=== PATIENT | male | born 1950 | race Two or more races ===

== ENCOUNTER 2022-10-30 08:10 | Inpatient (IN) | payer BC, MEDICARE ==
[2022-10-30] VITALS (15 sets, daily range): BP systolic 118–147; BP diastolic 58–94
[~2022-10-30] VITALS: Ht 170.2 cm; Wt 96.2 kg
--- NOTE | 2022-10-30 08:16 | NUR ---
PT BIBRA FROM HOME C/O WORSENING SHORTNESS OF BREATH AND BLE EDEMA SINCE YESTERDAY. PER EMS REPORT PT WAS SATTING AT LOW 80'S ON RA. PLACED ON O2@2LPM AND IS COMFORTABLE AWAITNG MD RHODES.
--- NOTE | 2022-10-30 08:19 | NUR ---
DR MARTINS AT BEDSIDE FOR EVAL.
[2022-10-30 08:50] LABS: BASOPHILS % (AUTO) 0.3 % (0.0-2.0); EOSINOPHILS % (AUTO) 1.6 % (0.0-6.0); HEMATOCRIT 41 % (39-51); HEMOGLOBIN 13.1 g/dL (13.5-17.5); LYMPHOCYTES # (AUTO) 1.2 K/uL (0.8-4.8); LYMPHOCYTES % (AUTO) 18.3 % (20.0-44.0); MEAN CORPUSCULAR HGB CONC 32 g/dl (31.0-36.0); MEAN CORPUSCULAR VOLUME 92 fL (80-96); MONOCYTES # (AUTO) 0.6 K/uL (0.1-1.30); MONOCYTES % (AUTO) 9.1 % (2.0-12.0); NEUTROPHILS # (AUTO) 4.7 K/uL (1.8-8.9); NEUTROPHILS % (AUTO) 70.7 % (43.0-81.0); PLATELET COUNT (AUTO) 182 K/uL (150-450); RED BLOOD CELL COUNT(AUTO) 4.42 MIL/uL (4.5-6.0); WHITE BLOOD COUNT (AUTO) 6.7 K/uL (4.3-11.0)
--- NOTE | 2022-10-30 08:54 | NUR ---
RADIOLOGY AT BEDSIDE FOR CHEST XRAY
[2022-10-30 09:07] LABS: CALCIUM, SERUM 8.9 mg/dL (8.5-10.1); CARBON DIOXIDE 27 mmol/L (21-32); CHLORIDE 108 mmol/L (98-107); CREATININE 1.5 mg/dL (0.6-1.3); GLUCOSE 311 mg/dL (74-106); POTASSIUM 5.1 mmol/L (3.5-5.1); SODIUM SERUM 141 mmol/L (136-145); UREA NITROGEN, BLOOD 33 mg/dL (7-18)
[2022-10-30 09:25] LABS: ALANINE AMINOTRANSFERASE 75 U/L (12-78); ALBUMIN 3.4 g/dL (3.4-5.0); ALKALINE PHOSPHATASE 107 U/L (46-116); ASPARTATE AMINOTRANSFERASE 35 U/L (15-37); BILIRUBIN,DIRECT 0.1 mg/dL (0.0-0.2); BILIRUBIN,TOTAL 0.4 mg/dL (0.2-1.0); TOTAL PROTEIN, SERUM 7.2 g/dL (6.4-8.2)
--- NOTE | 2022-10-30 09:33 | NUR ---
CARDIOLOGY ON-CALL PAGED
--- NOTE | 2022-10-30 09:35 | NUR ---
PANEL ON-CALL PAGED
[2022-10-30] MEDS ORDERED: ENOXAPARIN SODIUM 100 MG/ML DISP.SYRIN SQ ONE ×2 (09:39→10:00)
[2022-10-30] MEDS ORDERED: ASPIRIN 325 MG TABLET ONE (09:40)
[2022-10-30] MEDS ORDERED: ASPIRIN 325 MG TABLET PO ONE (10:00)
[2022-10-30] MEDS ORDERED: FURO40TA5 PO (10:17)
[2022-10-30] MEDS ORDERED: METO-357 PO (10:17)
[2022-10-30] MEDS ORDERED: TAMS-12 PO (10:17)
[2022-10-30] MEDS ORDERED: LISI40TA13 PO (10:17)
[2022-10-30] MEDS ORDERED: DULA1.5P SQ (10:17)
[2022-10-30] MEDS ORDERED: METF-442 PO (10:17)
[2022-10-30] MEDS ORDERED: ASPI-1420 PO (10:17)
[2022-10-30] MEDS ORDERED: INSU100I26 SQ (10:17)
[2022-10-30] MEDS ORDERED: GLIM4TAB37 PO (10:17)
[2022-10-30] MEDS ORDERED: MULT-447 PO (10:17)
[2022-10-30] MEDS ORDERED: ATOR10TA PO (10:17)
[2022-10-30] MEDS ORDERED: BICA50TA8 PO (10:17)
--- NOTE | 2022-10-30 11:15 | NUR ---
REPORT GIVEN TO ALMA RN AT ICU. AWAITING TRANSFER TO FLOOR.
[2022-10-30] MEDS ORDERED: MAGNESIUM HYDROXIDE 30 ML UDC PO PRN (11:30)
[2022-10-30] MEDS ORDERED: ACETAMINOPHEN 325 MG TABLET PO PRN (11:30)
[2022-10-30] MEDS ORDERED: DEXTROSE 50%-WATER 50 ML DISP.SYRIN IV PRN (11:30)
[2022-10-30] MEDS ORDERED: ONDANSETRON HCL/PF 4 MG/2 ML VIAL IVP PRN (11:30)
[2022-10-30] MEDS ORDERED: MAG HYDROX/AL HYDROX/SIMETH 30 ML UDC PO PRN (11:30)
[2022-10-30] MEDS ORDERED: Z GUARD REMEDY 4 OZ OINT TP PRN (11:30)
--- NOTE | 2022-10-30 11:58 | NUR ---
PATIENT TAKEN TO RADIOLOGY FOR CT PULMONARY ANGIOGRAM AND TAKEN STRAIGHT TO ICU.
[2022-10-30] MEDS ORDERED: IOHEXOL-350 100 ML VIAL IV ONE (12:19)
[2022-10-30] MEDS ORDERED: IV NS 0.9% 250 ML IV ONE (12:19)
[2022-10-30] MEDS: BLOOD SUGAR DIAGNOSTIC 1 EACH STRIP VI SCH ×3 (14:03→21:36)
[2022-10-30] MEDS: FUROSEMIDE 40 MG/4 ML VIAL IV SCH ×2 (14:03→17:27)
[2022-10-30] MEDS: INSULIN REGULAR, HUMAN 100 UNIT/ML 3 ML VIAL SQ PRN (19:13)
[2022-10-30] MEDS: INSULIN GLARGINE, 100 UNIT/ML CARTRIDGE SQ SCH (19:14)
--- NOTE | 2022-10-30 19:25 | NUR ---
CLOSING PT IN BED RESTING A/O X4. BREATHING IS EVEN AND UNLABORED MORE CLEAR BREATH SOUNDS 96% ON 3L NC. PT RECEIVED LASIX MADE 2000 ML OR URINE AND REDUCED EDEMA. ANTI COAGULANTS SCHEDULED FOR TECHNOLOGY SOLUTIONS ARCHITECT. LAST SUGAR 254 LATUS AND INSULIN GIVEN. PT IS AMBULATORY BUT HAS CONDOM CATH.
[2022-10-30] MEDS: ENOXAPARIN SODIUM 100 MG/ML DISP.SYRIN SQ SCH (21:36)
[2022-10-30] MEDS: *INSULIN REGULAR(HUMULIN R)HUM 100 UNIT/ML VIAL SQ PRN (21:43)
[2022-10-31] VITALS (20 sets, daily range): BP systolic 115–168; BP diastolic 47–136
--- NOTE | 2022-10-31 04:30 | NUR ---
ICU/RN: PT CONDOM CATH FELL OFF. DIAPER WAS SOILED. NEW DIAPER PLACED PT GIVEN URINAL TO VOID.
[2022-10-31 05:07] LABS: BASOPHILS % (AUTO) 0.3 % (0.0-2.0); EOSINOPHILS % (AUTO) 3.1 % (0.0-6.0); HEMATOCRIT 38 % (39-51); HEMOGLOBIN 12.2 g/dL (13.5-17.5); LYMPHOCYTES # (AUTO) 1.2 K/uL (0.8-4.8); LYMPHOCYTES % (AUTO) 19.2 % (20.0-44.0); MEAN CORPUSCULAR HGB CONC 33 g/dl (31.0-36.0); MEAN CORPUSCULAR VOLUME 91 fL (80-96); MONOCYTES # (AUTO) 0.7 K/uL (0.1-1.30); MONOCYTES % (AUTO) 10.9 % (2.0-12.0); NEUTROPHILS # (AUTO) 4.3 K/uL (1.8-8.9); NEUTROPHILS % (AUTO) 66.5 % (43.0-81.0); PLATELET COUNT (AUTO) 162 K/uL (150-450); RED BLOOD CELL COUNT(AUTO) 4.13 MIL/uL (4.5-6.0); WHITE BLOOD COUNT (AUTO) 6.5 K/uL (4.3-11.0)
[2022-10-31 05:19] LABS: CALCIUM, SERUM 8.5 mg/dL (8.5-10.1); CARBON DIOXIDE 31 mmol/L (21-32); CHLORIDE 110 mmol/L (98-107); CREATININE 1.4 mg/dL (0.6-1.3); GLUCOSE 115 mg/dL (74-106); MAGNESIUM 2.1 mg/dL (1.8-2.4); PHOSPHORUS 5.1 mg/dL (2.5-4.9); POTASSIUM 4.1 mmol/L (3.5-5.1); SODIUM SERUM 148 mmol/L (136-145); UREA NITROGEN, BLOOD 34 mg/dL (7-18)
--- NOTE | 2022-10-31 05:48 | NUR ---
ICU/RN: LINENS CHANGED AND KRYSTLE CARE RENDERED.
--- NOTE | 2022-10-31 07:25 | NUR ---
OPENING PT AWAKE AND ALERT IN BED A/O 4X ABLE TO UNDERSTAND CONCEPT AND ANSWERS QUESTIONS APPROPRIATELY. BREATHING EVENLY AND UNLABORED ON 3L NC SAT 94%. VITAL SIGNS WNL NO S/S OF ACUTE DISTRESS. PTS EDEMA HAS IMPROVED NO LONGER PITTING AND AT BASELINE. PT IS AMBULATORY ABLE TO GET UP AND SIT ON THE EDGE OF THE BED. LAC PATENT SALINE FLUSH NO S/S OF INFILTRATION. LAST BG READ 162.
[2022-10-31] MEDS: ATORVASTATIN 10 MG TABLET PO SCH (08:47)
[2022-10-31] MEDS: BLOOD SUGAR DIAGNOSTIC 1 EACH STRIP VI SCH ×4 (08:47→22:03)
[2022-10-31] MEDS: BICALUTAMIDE 50 MG TABLET PO SCH (08:47)
[2022-10-31] MEDS: FUROSEMIDE 40 MG/4 ML VIAL IV SCH ×2 (08:47→17:46)
[2022-10-31] MEDS: ASPIRIN EC 81 MG TABLET.DR PO SCH (08:47)
[2022-10-31] MEDS: LISINOPRIL (20MG) 20 MG TABLET PO SCH (08:48)
[2022-10-31] MEDS: TAMSULOSIN 0.4 MG CAP.SR.24H PO SCH (08:48)
[2022-10-31] MEDS: METOPROLOL SUCCINATE 50 MG TAB.SR.24H PO SCH (08:48)
[2022-10-31] MEDS: ENOXAPARIN SODIUM 100 MG/ML DISP.SYRIN SQ SCH ×2 (08:51→20:04)
--- NOTE | 2022-10-31 10:00 | NUR ---
SS consult received for medical sales needs. SW will follow up at a later time.
[2022-10-31] MEDS: INSULIN REGULAR, HUMAN 100 UNIT/ML 3 ML VIAL SQ PRN ×2 (13:18→18:45)
[2022-10-31] MEDS: INSULIN GLARGINE, 100 UNIT/ML CARTRIDGE SQ SCH (18:38)
--- NOTE | 2022-10-31 18:39 | NUR ---
REMOTE BROADCAST ENGINEER NOTE RECEIVED PATIENT ROM ICU ALERT ORIENTED X3 ON TELE MONITOR SR , NO SOB NOTED AT THIS TIME, ON 3L NC , BED IN LOWEST AND LOCKED POSITION ,CALL LIFGR WITHIN REACH WILL CONT TO MONITOR
[2022-10-31] MEDS: *INSULIN REGULAR(HUMULIN R)HUM 100 UNIT/ML VIAL SQ PRN (22:04)
--- NOTE | 2022-10-31 22:46 | NUR ---
MICHELLE RN OPENING NOTE PT RECEIVED IN BED, AWAKE, A&O X4, CALM, COOPERATIVE. PT ON 3L NC WITH CURRENT O2SAT OF 92%; PT DENIES ANY SOB, NO S/S OF RESP DISTRESS, NO COUGH, NON-LABORED AND EQUAL BREATHING. PT ATTACHED TO EXTERNAL MONITOR, SR WITH HR OF 78. IV ACCESS ON LAC 20G, INTACT AND PATENT, FLUSHES EASILY WITH NO RESISTANCE; NO MEDS/FLUIDS INFUSING THROUGH IT. BED IN LOWEST POSITION, CALL LIGHT WITHIN REACH, SIDE RAILS UP X2. WILL CONTINUE TO MONITOR THROUGHOUT THE NIGHT.
[2022-11-01] VITALS: BP 137/74
[2022-11-01 04:00] VITALS: BP 109/76
[2022-11-01 06:51] LABS: BASOPHILS % (AUTO) 0.2 % (0.0-2.0); EOSINOPHILS % (AUTO) 3.2 % (0.0-6.0); HEMATOCRIT 39 % (39-51); HEMOGLOBIN 12.8 g/dL (13.5-17.5); LYMPHOCYTES # (AUTO) 1.2 K/uL (0.8-4.8); MEAN CORPUSCULAR HGB CONC 33 g/dl (31.0-36.0); MEAN CORPUSCULAR VOLUME 91 fL (80-96); MONOCYTES # (AUTO) 0.7 K/uL (0.1-1.30); MONOCYTES % (AUTO) 11.3 % (2.0-12.0); NEUTROPHILS % (AUTO) 65.3 % (43.0-81.0); PLATELET COUNT (AUTO) 179 K/uL (150-450); RED BLOOD CELL COUNT(AUTO) 4.32 MIL/uL (4.5-6.0); WHITE BLOOD COUNT (AUTO) 6.1 K/uL (4.3-11.0)
--- NOTE | 2022-11-01 07:05 | NUR ---
MICHELLE RN CLOSING NOTE PT REMAINS IN BED, AWAKE, A&O X4, CALM, COOPERATIVE. CONTINUES TO BE ON 3L NC WITH O2SAT RANGING FROM 92%-98%; NO S/S OF RESP DISTRESS, NO SOB OR COUGH, NON-LABORED AND EQUAL BREATHING. PT ATTACHED TO EXTERNAL MONITOR, SB-SR WITH HR RANGING FROM 57- 78. IV ACCESS ON LAC 20G, INTACT AND PATENT, FLUSHES EASILY WITH NO RESISTANCE; NO MEDS/FLUIDS INFUSING THROUGH IT. ALL; DUE MEDS ADMINISTERED DURING THE NIGHT. BED IN LOWEST POSITION, CALL LIGHT WITHIN REACH, SIDE RAILS UP X2. WILL ENDORSE TO DAYSHIFT NURSE TO CONTINUE CARE.
[2022-11-01 07:17] LABS: CALCIUM, SERUM 8.6 mg/dL (8.5-10.1); CARBON DIOXIDE 34 mmol/L (21-32); CHLORIDE 109 mmol/L (98-107); CREATININE 1.2 mg/dL (0.6-1.3); GLUCOSE 69 mg/dL (74-106); POTASSIUM 4.1 mmol/L (3.5-5.1); SODIUM SERUM 149 mmol/L (136-145); UREA NITROGEN, BLOOD 33 mg/dL (7-18)
--- NOTE | 2022-11-01 07:25 | NUR ---
RN OPENING NOTE PT RECEIVED IN BED, AWAKE, A&O X4, CALM, COOPERATIVE. PT ON 3L NC; PT DENIES ANY SOB, NO S/S OF RESP DISTRESS, NO COUGH, NON-LABORED AND EQUAL BREATHING. PT ATTACHED TO EXTERNAL MONITOR. IV ACCESS ON LAC 20G, INTACT AND PATENT, FLUSHES EASILY WITH NO RESISTANCE. BED IN LOWEST POSITION, CALL LIGHT WITHIN REACH, SIDE RAILS UP X2.
[2022-11-01 08:00] VITALS: BP 126/70
[2022-11-01] MEDS: ASPIRIN EC 81 MG TABLET.DR PO SCH (08:15)
[2022-11-01] MEDS: METOPROLOL SUCCINATE 50 MG TAB.SR.24H PO SCH (08:15)
[2022-11-01] MEDS: FUROSEMIDE 40 MG/4 ML VIAL IV SCH (08:15)
[2022-11-01] MEDS: LISINOPRIL (20MG) 20 MG TABLET PO SCH (08:15)
[2022-11-01] MEDS: TAMSULOSIN 0.4 MG CAP.SR.24H PO SCH (08:15)
[2022-11-01] MEDS: BLOOD SUGAR DIAGNOSTIC 1 EACH STRIP VI SCH ×4 (08:15→21:26)
[2022-11-01] MEDS: ATORVASTATIN 10 MG TABLET PO SCH (08:15)
[2022-11-01] MEDS: ENOXAPARIN SODIUM 100 MG/ML DISP.SYRIN SQ SCH ×2 (08:19→20:07)
[2022-11-01] MEDS: BICALUTAMIDE 50 MG TABLET PO SCH (10:23)
[2022-11-01] MEDS: INSULIN REGULAR, HUMAN 100 UNIT/ML 3 ML VIAL SQ PRN ×2 (11:50→16:51)
[2022-11-01 12:00] VITALS: BP 112/64
[2022-11-01 16:00] VITALS: BP 119/53
[2022-11-01] MEDS: INSULIN GLARGINE, 100 UNIT/ML CARTRIDGE SQ SCH (17:08)
--- NOTE | 2022-11-01 18:32 | NUR ---
RN CLOSING NOTE PT IN BED, AWAKE, A&O X4, CALM, COOPERATIVE. CONTINUES TO BE ON 3L NC WITH O2SAT RANGING FROM 92%-98%; NO S/S OF RESP DISTRESS, NO SOB OR COUGH, NON-LABORED AND EQUAL BREATHING. PT ATTACHED TO EXTERNAL MONITOR,. IV ACCESS ON LAC 20G, INTACT AND PATENT, FLUSHES EASILY WITH NO RESISTANCE; NO MEDS/FLUIDS INFUSING THROUGH IT. ALL;. BED IN LOWEST POSITION, CALL LIGHT WITHIN REACH, SIDE RAILS UP X2. WILL ENDORSE TO NIGHT NURSE TO CONTINUE CARE.
[2022-11-01 20:00] VITALS: BP 125/70
--- NOTE | 2022-11-01 20:29 | NUR ---
UPHOLSTERY TECHNICIAN OPENING NOTE PT RECEIVED IN BED, AWAKE, A&O X4, CALM, COOPERATIVE. PT ON 3L NC WITH CURRENT O2SAT OF 96%; NO S/S OF RESP DISTRESS, NO COUGH OR SOB, NON-LABORED AND EQUAL BREATHING. PT ATTACHED TO EXTERNAL MONITOR, SR WITH HR OF 68. IV ACCESS ON LAC 20G, NO MEDS/FLUIDS INFUSING THROUGH. BED IN LOWEST POSITION, CALL LIGHT WITHIN REACH, SIDE RAILS UP X2. WILL CONTINUE TO MONITOR THROUGHOUT THE NIGHT.
[2022-11-01] MEDS: *INSULIN REGULAR(HUMULIN R)HUM 100 UNIT/ML VIAL SQ PRN (21:29)
[2022-11-02] VITALS: BP 103/62
[2022-11-02 04:00] VITALS: BP 127/60
--- NOTE | 2022-11-02 07:21 | NUR ---
AVIATION MECHANIC CLOSING NOTE PT REMAINS IN BED, ASLEEP BUT EASILY AROUSABLE. A&O X4, CALM, COOPERATIVE. CONTINUES TO BE ON 3L NC WITH O2SAT RANGING FROM 95%-98%; NO S/S OF RESP DISTRESS, NO SOB OR COUGH, NON-LABORED AND EQUAL BREATHING. PT ATTACHED TO EXTERNAL MONITOR, SB-SR WITH HR LOW 45. IV ACCESS ON LAC 20G, INTACT AND PATENT, FLUSHES EASILY WITH NO RESISTANCE; NO MEDS/FLUIDS INFUSING THROUGH IT. ALL; DUE MEDS ADMINISTERED DURING THE NIGHT. BED IN LOWEST POSITION, CALL LIGHT WITHIN REACH, SIDE RAILS UP X2. WILL ENDORSE TO DAYSHIFT NURSE TO CONTINUE CARE.
[2022-11-02 08:00] VITALS: BP 108/64
[2022-11-02] MEDS ORDERED: APIX5TAB PO (08:37)
[2022-11-02] MEDS ORDERED: FUROSEMIDE 40 MG/4 ML VIAL IV SCH (09:00)
[2022-11-02] MEDS: BICALUTAMIDE 50 MG TABLET PO SCH (10:30)
[2022-11-02] MEDS: LISINOPRIL (20MG) 20 MG TABLET PO SCH (10:31)
[2022-11-02] MEDS: ASPIRIN EC 81 MG TABLET.DR PO SCH (10:31)
[2022-11-02] MEDS: METOPROLOL SUCCINATE 50 MG TAB.SR.24H PO SCH (10:31)
[2022-11-02] MEDS: TAMSULOSIN 0.4 MG CAP.SR.24H PO SCH (10:31)
[2022-11-02] MEDS: BLOOD SUGAR DIAGNOSTIC 1 EACH STRIP VI SCH ×4 (10:32→22:02)
[2022-11-02] MEDS: ENOXAPARIN SODIUM 100 MG/ML DISP.SYRIN SQ SCH ×2 (10:32→20:24)
[2022-11-02] MEDS: ATORVASTATIN 10 MG TABLET PO SCH (10:32)
--- NOTE | 2022-11-02 10:51 | NUR ---
RN NOTE PATIENT ON ROOM AIR WHILE RESTING/SITTING ON CHAIR O2 SAT 96%. UPON AMBULATION APPROX 50 FEET O2 DECREASED TO 88%. PATIENT RETURNED TO ROOM AND SAT ON CHAIR WITHIN 3 MIN O2 SAT CAME BACK UP TO 95%.
--- NOTE | 2022-11-02 10:56 | NUR ---
RN NOTE PATIENT O2 SATURATION CURRENTLY 88% AT REST ON ROOM AIR.
[2022-11-02 12:00] VITALS: BP 98/49
[2022-11-02] MEDS: INSULIN REGULAR, HUMAN 100 UNIT/ML 3 ML VIAL SQ PRN ×2 (12:54→17:31)
[2022-11-02 16:00] VITALS: BP 117/63
[2022-11-02] MEDS: INSULIN GLARGINE, 100 UNIT/ML CARTRIDGE SQ SCH (17:32)
--- NOTE | 2022-11-02 18:51 | NUR ---
LAB INTERN CLOSING NOTE PT REMAINS IN BED, ASLEEP BUT EASILY AROUSABLE. A&O X4, CALM, COOPERATIVE. CONTINUES TO BE ON 3L NC WITH O2SAT RANGING FROM 95%-98%; NO S/S OF RESP DISTRESS, NO SOB OR COUGH, NON-LABORED AND EQUAL BREATHING. PT ATTACHED TO EXTERNAL MONITOR, . IV ACCESS ON LAC 20G, INTACT AND PATENT, FLUSHES EASILY WITH NO RESISTANCE; NO MEDS/FLUIDS INFUSING THROUGH IT. ALL; DUE MEDS ADMINISTERED. BED IN LOWEST POSITION, CALL LIGHT WITHIN REACH, SIDE RAILS UP X2. WILL
--- NOTE | 2022-11-02 19:35 | NUR ---
SCHOOL COMMUNITY RELATIONS COORDINATOR OPENING NOTE RECEIVED PT AWAKE IN BED. FAMILY AT BEDSIDE. A/O X4 AND ABLE TO MAKE NEEDS KNOWN. PT STABLE ON O2 @ 2LPM VIA NC, TOLERATING WELL. NO SOB OR S/S OF RESPIRATORY DISTRESS. BREATHING EVEN AND UNLABORED. ON EXTERNAL HEALTHCARE PROF READING SR 64 BPM. IV ACCESS LAC 20G SL, INTACT AND PATENT. SAFETY PRECAUTIONS IN PLACE. BED IN LOWEST LOCKED POSITION, HOB ELEVATED, SIDE RAILS UP X2, AND CALL LIGHT AND TABLE WITHIN REACH. ALL NEEDS MET AT THIS TIME.
[2022-11-02 20:00] VITALS: BP 125/62
[2022-11-02] MEDS: *INSULIN REGULAR(HUMULIN R)HUM 100 UNIT/ML VIAL SQ PRN (22:04)
[2022-11-03] VITALS: BP 132/62
[2022-11-03 04:00] VITALS: BP 126/65
--- NOTE | 2022-11-03 07:25 | NUR ---
GROUP PRESIDENT CLOSING NOTE PT AWAKE IN BED. A/O X4 AND ABLE TO MAKE NEEDS KNOWN. PT STABLE ON O2 @ 2LPM VIA NC, TOLERATING WELL. NO SOB OR S/S OF RESPIRATORY DISTRESS. BREATHING EVEN AND UNLABORED. ON EXTERNAL SUPERVISOR INSPECTING READING SR 64 BPM. IV ACCESS LAC 20G SL, INTACT AND PATENT. ALL DUE MEDS GIVEN ORDERED. KEPT CLEAN AND DRY. SAFETY PRECAUTIONS IN PLACE AT ALL TIMES. BED IN LOWEST LOCKED POSITION, HOB ELEVATED, SIDE RAILS UP X2, AND CALL LIGHT AND TABLE WITHIN REACH. ALL NEEDS MET AT THIS TIME AND WILL ENDORSE TO ONCOMING NURSE FOR DASHAWN.
[2022-11-03 07:44] LABS: CALCIUM, SERUM 8.2 mg/dL (8.5-10.1); CREATININE 1.1 mg/dL (0.6-1.3); POTASSIUM 3.9 mmol/L (3.5-5.1)
[2022-11-03 08:00] VITALS: BP 106/67
[2022-11-03] MEDS: BLOOD SUGAR DIAGNOSTIC 1 EACH STRIP VI SCH ×3 (08:30→17:49)
[2022-11-03] MEDS: INSULIN REGULAR, HUMAN 100 UNIT/ML 3 ML VIAL SQ PRN ×3 (08:46→18:12)
[2022-11-03] MEDS: TAMSULOSIN 0.4 MG CAP.SR.24H PO SCH (10:06)
[2022-11-03] MEDS: METOPROLOL SUCCINATE 50 MG TAB.SR.24H PO SCH (10:07)
[2022-11-03] MEDS: ASPIRIN EC 81 MG TABLET.DR PO SCH (10:07)
[2022-11-03] MEDS: LISINOPRIL (20MG) 20 MG TABLET PO SCH (10:07)
[2022-11-03] MEDS: ATORVASTATIN 10 MG TABLET PO SCH (10:08)
[2022-11-03] MEDS: BICALUTAMIDE 50 MG TABLET PO SCH (10:14)
[2022-11-03] MEDS: ENOXAPARIN SODIUM 100 MG/ML DISP.SYRIN SQ SCH (10:19)
--- NOTE | 2022-11-03 10:45 | NUR ---
Leather Cleaner Consult MARICHUY received a consult request for medical transcriber needs. Pt. is a 72 y.o. male who was admitted for SOB. MARICHUY met with pt. at bedside in the [facility] unit. Pt. appears disheveled and is alert and oriented x4. Pt. makes normal eye contact, has a euthymic mood and congruent affect. Pt. states he is currently living with his (Kallie Rubio ) at [id number] [id number]. Per pt. report he is ambulatory and is independent with all their ADLs. Pt. reports no hx of drug use. Pt. stated he was receiving financial assistance ([employer]), Pt. reported having no hx of psychiatric dx. Per pt. does not have a hx of hallucinations. MARICHUY assessed pt. for suicidal and homicidal ideation in which pt. denied plan, means, or intent. Pt. is requesting medical devices including portable oxygen, glucose monitor for diabetes, and compression stockings. Per pt. he drove to [place], [place] two weeks ago from [place] And is switching his insurance. DC plan: When asked about pt.s plans after being discharged, pt. reported he was going back to his home.MARICHUY offered pt. information on Adult Day Programs in which pt. was agreeable. MARICHUY discussed with major case detective to support pt with medical transcriber needs. MARICHUY informed nurse of pt.s request who was agreeable. [facility] [place], [place] [address] [facility] [place] [address] [facility] [address] [place] [address] [facility] [id number] [place] [address] [facility] [address] [place] [address]
[2022-11-03 12:00] VITALS: BP 119/66
[2022-11-03 16:00] VITALS: BP 117/65
[2022-11-03] MEDS: INSULIN GLARGINE, 100 UNIT/ML CARTRIDGE SQ SCH (18:06)
--- NOTE | 2022-11-03 19:30 | NUR ---
RN NOTE PATIENT IS STABLE SITTING IN HER BED WAITING FOR OXYGEN TO BE DELIVERED AT BEDSIDE. DC ORDER IS PATIENT CAN LEAVE WITH OXYGEN. ENDORSED THE PATIENT TO THE POLICE COMMUNICATIONS OPERATOR NURSE. PATIENT IS AMBULATORY AND WILL GO HOME BY UBER.
--- NOTE | 2022-11-03 20:07 | NUR ---
RN NOTE RECEIVED PT DUE TO STILL IN HOSPITAL BED WAITING FOR O2. PT WAS ADVISED THAT HIS DC ORDER WAS TO LEAVE WITH BEDSIDE OXYGEN. DISCHARGE WAS ALREADY COMPLETED AND PT DIDNT WANT TO EAIT FOR 02 IF HE HAD TO GIVE CREDIT CARD INFO SINCE INSURANCE COULDNT BE REACHED. I CALLED MAAME GOODWIN AND ADVISED OF THE SITUATION AT HAND. SHE STATED THAT IF DR. SANTIZO ORDER WAS FOR DC WITH OXYGEN AND PT DIDN'T WANT TO WAIT FOR THE OXYGEN THEN HE WOULD NEED TO LEAVE AMA. PT SIGNED AMA FORM AND LEFT AT 2006
== END 2022-11-03 21:10 | disposition home or self-care (01) | DRG 175 ==
LOC: ER 08:19 → ICU 10:32 → TELE1 10-31 18:37 → TELE-TD 10-31 20:56 → TELE1 11-01 11:29 → MEDSG1 11-03 14:29
PROVIDERS: ADMIT Internal Medicine; ATTEND Internal Medicine
DX: I26.99 Other pulmonary embolism without acute cor pulmonale (principal); I50.33 Acute on chronic diastolic (congestive) heart failure; J96.01 Acute respiratory failure with hypoxia; J98.11 Atelectasis; N17.9 Acute kidney failure, unspecified; E87.0 Hyperosmolality and hypernatremia; I11.0 Hypertensive heart disease with heart failure; I50.9 Heart failure, unspecified; E11.9 Type 2 diabetes mellitus without complications; N40.0 Benign prostatic hyperplasia without lower urinary tract symptoms; I25.10 Atherosclerotic heart disease of native coronary artery without angina pectoris; Z85.46 Personal history of malignant neoplasm of prostate; I27.20 Pulmonary hypertension, unspecified; I70.0 Atherosclerosis of aorta; Z79.01 Long term (current) use of anticoagulants; Z92.3 Personal history of irradiation
CPT/HCPCS: 36415; 71045-TC; 80048-TC; 80076-TC; 82962-TC; 83605-TC; 83735-TC; 83880; 84100-TC; 84484-TC; 85025-TC; 85730-TC; 87040-TC; 87081-TC; 93307-TC; 93970-TC; 94799-TC; G0378; J1650; J1815; J1940; J7050; Q9967